=== PATIENT | female | born 1985 | race Caucasian/White ===

== ENCOUNTER 2020-01-09 12:07 | Emergency (ER) | payer OTHER ==
--- NOTE | 2020-01-09 12:18 | EDM.PDOC ---
ED HPI GENERAL MEDICAL PROBLEM - General Chief Complaint: Gastrointestinal Problem Stated Complaint: EXTERNAL HEMORRHOID PAIN Time Seen by Provider: 01/09/20 12:17 - History of Present Illness INITIAL COMMENTS - FREE TEXT/NARRATIVE: 34-year-old female presents to the emergency room complaining of a painful hemorrhoid. This is been going on for the last couple of days she noticed it early yesterday morning but today it was really painful. The patient has had mild problems with hemorrhoids in the past nothing quite like this. She tries to work on a high- fiber diet. 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 She is staying in an RV does not have access to a bathtub. The patient's group is trying to make it to [place] this evening. Patient has no significant past medical history. Even though this is the worst hemorrhoid she has had she has been advised not to do anything with these until she is done having kids. Rectal Pain Score (Numeric/FACES): 8 - Related Data Allergies Allergy/AdvReac Type Severity Reaction Status Date / Time No Known Allergies Allergy Verified 01/09/20 12:23 Home Meds: Home Meds Dextroamphetamine/Amphetamine [Adderall 20 mg Tablet] 20 mg PO DAILY PRN 01/09/20 [History] ED ROS GENERAL - Review of Systems Review Of Systems: See Below Constitutional: Reports: No Symptoms Respiratory: Reports: No Symptoms Cardiovascular: Reports: No Symptoms GI/Abdominal: Denies: Abdominal Pain, Bloody Stool, Constipation, Diarrhea, Hematochezia : Reports: No Symptoms ED EXAM, GI/ABD - Physical Exam Exam: See Below Exam Limited By: No Limitations General Appearance: Alert, No Apparent Distress Head: Atraumatic, Normocephalic Neck: Normal Inspection, Supple, Non-Tender, Full Range of Motion Respiratory/Chest: No Respiratory Distress, Lungs Clear, Normal Breath Sounds Cardiovascular: Regular Rate, Rhythm, No Edema, No Murmur GI/Abdominal Exam: Normal Bowel Sounds, Soft, Non-Tender Rectal (Female) Exam: Hemorrhoids (Large hemorrhoid posterior right side) Back Exam: Normal Inspection. No: CVA Tenderness (L), CVA Tenderness (R) ED ABDOMINAL/GI PROCEDURES - Additional/Other Procedure(s) Procedure(s) (Free Text): Patient was placed in the left lateral position with her right leg flexed up and with gentle traction to the right buttocks the area is well visualized the area was cleansed with Betadine then anesthetized with 1 cc of 0.5% bupivacaine without epi. Reasonable anesthesia was confirmed using #11 blade the area was opened up large amount of clotted blood was removed. Patient tolerated this without any difficulty. Course - Vital Signs Last Recorded V/S: Last Vital Signs Temp 36.7 C 01/09/20 12:14 Pulse 74 01/09/20 12:14 Resp 16 01/09/20 12:14 BP 134/97 H 01/09/20 12:14 Pulse Ox 99 01/09/20 12:14 - Orders/Labs/Meds Meds: Medications Discontinued Medications Generic Name Dose Route Start Last Admin Trade Name Isabell PRN Reason Stop Dose Admin Bupivacaine HCl 10 ml 01/09/20 12:29 Sensorcaine-Mpf 0.5% INJECT 01/09/20 12:30 ONETIME ONE Departure - Departure Time of Disposition: 13:11 Disposition: Home, Self-Care 01 Clinical Impression: Thrombosed external hemorrhoid - Discharge Information Referrals: PCP,Not In Area [Primary Care Provider] - Forms: ED Department Discharge Additional Instructions: Return to the emergency room with any questions problems or worsening symptoms. Wash the area very well, sitz bath preferable, every 4-6 hours. For the rest of today and tomorrow we will try and express any remaining or redeveloping clot out of the area. Continue the frequent washing and sitz bath until absolutely symptom-free. Use the Tucks pad folded in half over the area then a couple of 4 x 4's over the area to help with the irritation and protect yourself from any drainage. Follow-up with your regular healthcare provider when you get home. Have a safe travels and enjoyable trip. Sepsis Event Note (ED) - Focused Exam Vital Signs: Vital Signs Temp Pulse Resp BP Pulse Ox 01/09/20 12:14 36.7 C 74 16 134/97 H 99
[2020-01-09] MEDS ORDERED: Bupivacaine 0.5% 10 ML SDV INJECT ONE (12:29)
== END 2020-01-09 13:20 | disposition home or self-care (01) ==
LOC: JD.ED 12:07
DX: K64.5 Perianal venous thrombosis (principal)
CPT/HCPCS: 46083; 99282; J3490; 46320